=== PATIENT | female | born 2000 | race African-American/Black ===

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

== ENCOUNTER 2021-03-02 15:38 | Emergency (ER) | payer OTHER, MEDICAID ==
[~2021-03-02] VITALS: Ht 167.6 cm; Wt 63.5 kg
[~2021-03-02 15:38] MED LIST changes: +CENTANY30 GM TOP; +DOXYCYCLINE 10100 MG PO
[2021-03-02 16:25] VITALS: BP 128/64
== END 2021-03-02 16:25 | disposition home or self-care (01) ==
LOC: M.ERS 15:38
DX: R50.9 Fever, unspecified (principal); R05 Cough; R51.9 Headache, unspecified; J45.909 Unspecified asthma, uncomplicated; R09.89 Other specified symptoms and signs involving the circulatory and respiratory systems; Z20.822 Contact with and (suspected) exposure to COVID-19; Z88.1 Allergy status to other antibiotic agents

== ENCOUNTER 2021-05-12 21:22 | Emergency (ER) | payer OTHER, MEDICAID ==
[~2021-05-12] VITALS: Ht 170.2 cm; Wt 66.7 kg
[2021-05-12 23:52] VITALS: BP 122/69
== END 2021-05-12 23:53 | disposition home or self-care (01) ==
LOC: M.ERS 21:22
DX: S13.9XXD Sprain of joints and ligaments of unspecified parts of neck, subsequent encounter (principal); S06.0X9D Concussion with loss of consciousness of unspecified duration, subsequent encounter; M25.571 Pain in right ankle and joints of right foot; J45.909 Unspecified asthma, uncomplicated; M19.90 Unspecified osteoarthritis, unspecified site; Z88.0 Allergy status to penicillin; V49.9XXD Car occupant (driver) (passenger) injured in unspecified traffic accident, subsequent encounter